=== PATIENT | female | born 1975 | race Caucasian/White ===

== ENCOUNTER → 2020-09-14 | Outpatient (CLI) | payer OTHER ==
[~2020-09-14] MED LIST: ATORVASTATIN CA40 MG PO; BACLOFEN10 MG PO; CLARITIN 10MG T10 MG PO; COLACE100 MG PO; ENOXAPARIN40 MG/0.4 SQ; GABAPENTIN800 MG PO; IBUPROFEN600 MG PO; LACTULOSE10 GM/15 M PO; LASIX TAB 20 MG20 MG PO; LEVOTHYROXINE300 MCG PO; LISINOPRIL20 MG PO; METFORMIN HCL500 MG PO; NYAMYC; OMEPRAZOLE40 MG PO; ONDANSETRON ODT4 MG PO; OXYCODONE-ACET1 EACH PO; PERCOCET 10-321 EACH PO; PHENTERMINE H37.5 M1 PO; TYLENOL EXTRA500 MG PO; VITAMIN D21250 MCG PO; Voltaren Gel 1 % TP; Voltaren Gel 1% TOP; XARELTO20 MG PO
[2020-09-14 12:21] LABS: HEMOGLOBIN 14.4 gm/dl (12.3-15.3); RED BLOOD COUNT 4.4 M/UL (4.00-5.10); WHITE BLOOD COUNT 4.6 K/UL (4.5-11.0)
[2020-09-14 12:38] LABS: BUN/CREATININE RATIO 9 (0-10)
== END ==
LOC: OPSV2 11:00
PROVIDERS: Orthopaedic Surgery
DX: Z01.818 Encounter for other preprocedural examination (principal); M17.12 Unilateral primary osteoarthritis, left knee
CPT/HCPCS: 36415; 80048; 81001; 85025; 87081; 93005

== ENCOUNTER → 2020-09-24 | Outpatient (CLI) | payer OTHER ==
[2020-09-24 15:17] LABS: BUN/CREATININE RATIO 15 (0-10)
== END ==
LOC: LAB 13:06
PROVIDERS: Orthopaedic Surgery
DX: Z01.812 Encounter for preprocedural laboratory examination (principal); M17.12 Unilateral primary osteoarthritis, left knee
CPT/HCPCS: 80048; 86850; 86900; 86901

== ENCOUNTER 2020-09-25 08:41 | Day surgery (SDC) | payer OTHER ==
[~2020-09-25] VITALS: Ht 157.5 cm; Wt 105.2 kg
[~2020-09-25 08:41] MED LIST changes: -ENOXAPARIN40 MG/0.4 SQ; -PERCOCET 10-321 EACH PO
[2020-09-25] MEDS ORDERED: ENOXAPARIN40 MG/0.4 SQ (09:52)
[2020-09-26 03:24] LABS: HEMOGLOBIN 12.5 gm/dl (12.3-15.3); RED BLOOD COUNT 3.9 M/UL (4.00-5.10); WHITE BLOOD COUNT 11.2 K/UL (4.5-11.0)
[2020-09-26 03:42] LABS: BUN/CREATININE RATIO 18 (0-10)
[2020-09-26] MEDS ORDERED: PERCOCET 10-321 EACH PO (07:22)
[2020-09-27 03:15] LABS: HEMOGLOBIN 11.6 gm/dl (12.3-15.3); RED BLOOD COUNT 3.6 M/UL (4.00-5.10)
[2020-09-27 03:17] LABS: WHITE BLOOD COUNT 8.2 K/UL (4.5-11.0)
[2020-09-27 03:42] LABS: BUN/CREATININE RATIO 17 (0-10)
== END 2020-09-27 13:13 | disposition home or self-care (01) ==
LOC: OR 08:41 → M/S 15:11 → OR 09-27 13:13
PROVIDERS: Orthopaedic Surgery
DX: M17.12 Unilateral primary osteoarthritis, left knee (principal); E11.9 Type 2 diabetes mellitus without complications; I10 Essential (primary) hypertension; E78.5 Hyperlipidemia, unspecified; E03.9 Hypothyroidism, unspecified; Z79.01 Long term (current) use of anticoagulants; Z88.5 Allergy status to narcotic agent; Z88.2 Allergy status to sulfonamides; Z79.84 Long term (current) use of oral hypoglycemic drugs; D68.2 Hereditary deficiency of other clotting factors; E66.9 Obesity, unspecified; Z68.39 Body mass index [BMI] 39.0-39.9, adult; M54.9 Dorsalgia, unspecified; G89.29 Other chronic pain
CPT/HCPCS: 36415; 73560; 80048; 82962; 85025; 97116-GP-CQ; 97161; 97166; 97535; C1713; C1776; J0690; J1100; J1170; J1885; J2001; J2250; J2405; J2704; J2765; J2795; J3010; J7120